=== PATIENT | female | born 1970 | race Caucasian/White ===

== ENCOUNTER 2017-09-08 03:54 | Emergency (ER) | payer OTHER ==
[~2017-09-08] VITALS: Ht 261.6 cm; Wt 62.6 kg
[2017-09-08 07:54] LABS: BASOPHIL % 0.6 % (0-2); PLATELET COUNT 247 x10^3mcL (130-400); RED CELL DISTRIBUTION WIDTH 14.4 % (11.5-14.5)
[2017-09-08 08:07] LABS: CALCIUM 8.9 mg/dL (8.5-10.1); CARBON DIOXIDE 30.1 mmol/L (21-32); CHLORIDE SERUM 105 mmol/L (98-107); CREATININE SERUM 0.7 mg/dL (0.6-1.0); GFR1 > 60 mL/min; GLUCOSE SERUM 89 mg/dL (74-106); POTASSIUM SERUM 3.3 mmol/L (3.5-5.1); SODIUM SERUM 141 mmol/L (136-145)
[2017-09-08 08:22] VITALS: BP 143/93
[2017-09-08 10:02] LABS: ERYTHROCYTE SED RATE 11 mm/hr (0-20)
== END 2017-09-08 10:15 | disposition home or self-care (01) ==
LOC: ED 03:54
PROVIDERS: Emergency Medicine
DX: M77.9 Enthesopathy, unspecified (principal); I10 Essential (primary) hypertension
CPT/HCPCS: 36415

== ENCOUNTER 2017-09-28 19:21 | Emergency (ER) | payer OTHER ==
[~2017-09-28] VITALS: Ht 170.2 cm; Wt 61.5 kg
[2017-09-28 19:32] VITALS: Ht 170.2 cm; Wt 61.5 kg
[2017-09-28 20:45] LABS: BASOPHIL % 0.5 % (0-2); PLATELET COUNT 327 x10^3mcL (130-400); RED CELL DISTRIBUTION WIDTH 13.9 % (11.5-14.5)
[2017-09-28 20:54] LABS: CALCIUM 9.9 mg/dL (8.5-10.1); CARBON DIOXIDE 27.7 mmol/L (21-32); CHLORIDE SERUM 97 mmol/L (98-107); CREATININE SERUM 0.6 mg/dL (0.6-1.0); GFR1 > 60 mL/min; GLUCOSE SERUM 107 mg/dL (74-106); POTASSIUM SERUM 4.3 mmol/L (3.5-5.1); SODIUM SERUM 136 mmol/L (136-145)
[2017-09-28 20:58] LABS: ALBUMIN 4.3 g/dL (3.4-5.0); ALKALINE PHOSPHATASE 108 U/L (46-116); ALT/SGPT 27 U/L (14-59); AST/SGOT 34 U/L (15-37); BILIRUBIN TOTAL 0.63 mg/dL (0.20-1.00)
[2017-09-29 00:07] VITALS: BP 151/95
== END 2017-09-29 00:07 | disposition home or self-care (01) ==
LOC: ED 19:21
PROVIDERS: Emergency Medicine
DX: R07.89 Other chest pain (principal); M54.6 Pain in thoracic spine; R06.02 Shortness of breath; R11.0 Nausea; J45.909 Unspecified asthma, uncomplicated; Z90.710 Acquired absence of both cervix and uterus
CPT/HCPCS: J1885; J7030; Q9967

== ENCOUNTER 2018-11-14 11:27 | Inpatient (IN) | payer OTHER ==
[~2018-11-14] VITALS: Ht 167.6 cm; Wt 62.8 kg
[2018-11-14 11:32] VITALS: Ht 167.6 cm; Wt 62.8 kg
--- NOTE | 2018-11-14 11:46 | NUR ---
PT BIBA FOR SEVERE UPPER BACK PAIN SINCE WEDNESDAY BUT REPORTS IT GOT WORSE TODAY AND PAIN CAUSED PT FALL ON FLOOR. NO INJURY OR LOC. PT STS PAIN STARTED ORIGINALLY IN LOWER BACK AND RADIATES BETWEEN SHOULDER BLADES. PT REPORTS EPISODE OF BACK PAIN LIKE THIS IN THE PAST AND IT WAS A TORN LIGAMENT IN HER BACK. PT IS AAOX4, RESPS E/U; SPEAKING IN CLEAR AND COMPLETE SENTENCES. CALL LIGHT WITH IN REACH. STS SHE IS UNABLE TO GIVE URINE AT THIS TIME DUE TO PAIN. DENIES ANY CHANCE OF DUE TO HYSTERECTOMY.
--- NOTE | 2018-11-14 11:54 | NUR ---
EKG IN PROGRESS
[2018-11-14 11:57] LABS: BASOPHIL % 0.1 % (0-2); PLATELET COUNT 207 x10^3mcL (130-400)
[2018-11-14 12:05] LABS: RED CELL DISTRIBUTION WIDTH 15.4 % (11.5-14.5)
[2018-11-14 12:42] LABS: CALCIUM 11.3 mg/dL (8.5-10.1); CARBON DIOXIDE 25.5 mmol/L (21-32); CHLORIDE SERUM 93 mmol/L (98-107); CREATININE SERUM 0.9 mg/dL (0.6-1.0); GFR1 > 60 mL/min; GLUCOSE SERUM 131 mg/dL (74-106); POTASSIUM SERUM 3.9 mmol/L (3.5-5.1); SODIUM SERUM 133 mmol/L (136-145)
[2018-11-14 12:48] LABS: ALBUMIN 4.6 g/dL (3.4-5.0); ALKALINE PHOSPHATASE 117 U/L (46-116); ALT/SGPT 31 U/L (14-59); AST/SGOT 49 U/L (15-37); BILIRUBIN TOTAL 0.95 mg/dL (0.20-1.00); TOTAL PROTEIN, SERUM 9.2 g/dL (6.4-8.2)
--- NOTE | 2018-11-14 13:16 | NUR ---
PT MEDICATED PER MD ORDER, PT VERBALIZED UNDERSTANDING OF MEDICATION PRIOR TO ADMINISTRATION. PRIOR TO ADMINISTRATION, ASKED PT FOR URINE SAMPLE TO CHECK FOR , PT REPORTED THAT SHE HAD A HYSTERECTOMY. PT GIVEN CALL LIGHT AND SHOWN HOW TO USE IT. AWARE OF NEED FOR URINE SAMPLE.
--- NOTE | 2018-11-14 13:48 | NUR ---
PT LAYING COMFORTABLY IN GURNEY, AWAKE AND ALERT, RESP E/U, REPORTS PAIN IMPROVED TO 4/10 AT THIS TIME. ENCOURAGED PT TO PROVIDE URINE SAMPLE, PT REPORTS SHE IS STILL UNABLE TO PROVIDE.
[2018-11-14] MEDS ORDERED: ZOLOFT50 MG PO (14:32)
[2018-11-14] MEDS ORDERED: XANAX0.5 MG PO (14:32)
[2018-11-14] MEDS ORDERED: PROVENTIL0.09 MG/A1 IH (14:32)
[2018-11-14] MEDS ORDERED: TRAZODONE100 MG PO (14:33)
[2018-11-14 14:45] LABS: microscopic required? YES; urine erythrocyte 2+ (NEGATIVE)
--- NOTE | 2018-11-14 14:49 | NUR ---
PT LAYING COMFORTABLY IN GURNEY, AWAKE AND ALERT, SPEAKING WITH RESIDENT MDS. VERBALIZED UNDERSTANDING OF PLAN OF CARE FOR ADMISSION.
--- NOTE | 2018-11-14 15:31 | NUR ---
REPORT CALLED TO OLEGARIO LOPES ON TELE TO ASSUME CARE FOR PT.
--- NOTE | 2018-11-14 15:41 | NUR ---
PER DR COLINDRES, HE WOULD LIKE PT TO RECIEVE FIRST DOSE OF MACROBID HERE IN ED NOW.
--- NOTE | 2018-11-14 15:52 | NUR ---
PT TRANSPORTED TO TELE AT THIS TIME BY RN DUSTY AND EMT JASON. PT IS AWAKE AND ALERT, RESP E/U, VERBALIZED UNDERSTANDING OF PLAN OF CARE PRIOR TO TRANSPORT. NAD NOTED UPON LEAVING ED.
[2018-11-14 16:11] VITALS: BP 138/101
--- NOTE | 2018-11-14 16:17 | NUR ---
RECIVED PT FROM ED VIA TIMOTHY. ORIENTED PT TO ROOM AND SURROUNDINGS. IV NOTED TO RW PATENT AND INTACT. TELE 29 PLACED ON PT READING ST WITH ELEVATED T WAVE. INSTRUCTED PT ON THE USE OF CALL LIGHT FOR ASSISTANCE. ENDORSED PT TO PRIMARY NURSE MOSES
[2018-11-14 16:23] LABS: AMPHETAMINE QUAL UR NONE DETECTED (See below)
[2018-11-14 16:23] LABS: MAGNESIUM 2.3 mg/dL (1.8-2.4); PHOSPHOROUS 1.3 mg/dL (2.5-4.9)
[2018-11-14 16:24] LABS: CHOLESTEROL/HDL RATIO 2.1
--- NOTE | 2018-11-14 17:49 | NUR ---
PT EATING DINNER, C/O DIFFICULTY PASSING FOOD FURTHER INTO THE ESOPHAGUS; PT WAS POINTING AT THE LEFT SIDE OF HER CHEST, XYPHOID PROCESS LEVEL. STATES THAT SHE FEELS SHARP PAIN 10/10 WHEN SHE SWALLOWS SOLID FOOD AND EVEN LIQUIDS. PAGED DR JAIMES.
--- NOTE | 2018-11-14 18:20 | NUR ---
DR JAIMES PAGED X 2, NO RESPONSE. PT GIVEN NORCO 7.5/325MG 1 TAB PO FOR SHARP ESOPHAGEAL PAIN S/P SWALLOWING FOOD, STATES 10/10 PAIN. NO RESPIRATORY DISTRESS NOTED. FAMILY MEMBERS BY BEDSIDE. SIDE RAILS UP X 2, BED IN LOW POSITION, CALL LIGHT WITHIN REACH. WILL ENDORSE TO NOC SHIFT.
--- NOTE | 2018-11-14 19:15 | NUR ---
CARE ASSUMED FROM OUTGOING RN. PT RESTING IN BED. PT C/O OF LEFT SHOULDER PAIN AND PAIN LEFT TO PT XYPHOID PROCESS WHEN SWALLOWING ANYTHING. BACK PAIN IS MUCH BETTER AFTER PAIN MEDICATIONS GIVEN DURING DAY SHIFT. NO C/O SOB AT THIS TIME ON RA. ON TELE # [address] 103 WITH SLIGHTLY ELEVATED T WAVE. IVL PATENT AND INTACT. BED IN LOWEST POSITION. SEIZURE PRECAUTION IN PLACE. CALL LIGHT WITHIN REACH. WILL CONTINUE TO MONITOR.
[2018-11-14 21:10] VITALS: BP 138/100
--- NOTE | 2018-11-15 | NUR ---
PT ASLEEP COMFORTABLY. NO ACUTE DISTRESS NOTED. EVEN AND UNLABORED RESPIRATIONS ON RA. IVL PATENT AND INTACT. ON TELE #[address] 104. BED IN LOWEST POSITION. SEIZURE PRECAUTION IN PLACE. SIDE RAILS UPX2. CALL LIGHT WITHIN REACH. WILL CONTINUE TO MONITOR.
--- NOTE | 2018-11-15 01:46 | NUR ---
PT RESTING IN BED. C/O LOWER BACK PAIN 10/17. MEDICATED PER EMAR. KPAD APPLIED. ON TELE #[address] 137. IVL INTACT. BED IN LOWEST POSITION. SEIZURE PRECAUTION IN PLACE. SIDE RAILS UPX2. CALL LIGHT WITHIN REACH. WILL CONTINUE TO MONITOR AND REASSESS FOR PAIN.
[2018-11-15 04:58] VITALS: BP 155/110
[2018-11-15 06:34] LABS: BASOPHIL % 0.2 % (0-2); PLATELET COUNT 207 x10^3mcL (130-400)
[2018-11-15 06:48] LABS: RED CELL DISTRIBUTION WIDTH 14.9 % (11.5-14.5)
[2018-11-15 06:57] LABS: CALCIUM 10.4 mg/dL (8.5-10.1); CHLORIDE SERUM 95 mmol/L (98-107); CREATININE SERUM 0.7 mg/dL (0.6-1.0); GFR1 > 60 mL/min; GLUCOSE SERUM 119 mg/dL (74-106); MAGNESIUM 2.1 mg/dL (1.8-2.4); PHOSPHOROUS 2.2 mg/dL (2.5-4.9); SODIUM SERUM 133 mmol/L (136-145)
--- NOTE | 2018-11-15 07:20 | NUR ---
RECEIVED PATIENT FROM CARDIAC NURSE PRACTITIONER NURSE. PATIENT IS RESTING WITH BOTH EYES CLOSED, AROUSABLE. TELE#29, ST WITH PEAKED T WAVE, HR 100. ON ROOM AIR, BREATHING EVEN AND UNLABORED. IV NOTED TO RIGHT WRIST, SALINE LOCKED, FLUSHING WELL, NO S/S ERYTHEMA AT SITE. CALL LIGHT WITHIN EASY REACH. WILL CONTIUE PLAN OF CARE.
--- NOTE | 2018-11-15 07:24 | NUR ---
PT SLEPT IN INTERVALS THROUGHOUT THE NIGHT. NO ACUTE CHANGES NOTED. C/O LOWER BACK PAIN AND CHEST PAIN MEDICATED PER EMAR. K PAD APPLIED. ALL NEEDS TENDED TO AND MET. ALL MEDICATIONS GIVEN. IVL INTACT. ON TELE #29 READING SR-ST. BED IN LOWEST POSITION. SEIZURE PRECAUTION IN PLACE. SIDE RAILS UPX2. CALL LIGHT WITHIN REACH. ENDORSED PT TO ONCOMING SHIFT.
[2018-11-15 09:58] VITALS: BP 153/103
--- NOTE | 2018-11-15 12:57 | NUR ---
DISCUSSED PLAN OF CARE FOR GI CONSULT WITH PATIENT. PATIENT VERBALIZES UNDERSTANDING. INSTRUCTED PATIENT TO KEEP HOB ELEVATED TO ALLEVIATE POSSIBLE GERD LIKE SYMPTOMS.
[2018-11-15 13:41] VITALS: BP 115/85
[2018-11-15] MEDS ORDERED: NATURAL IRON65 MG PO (14:33)
--- NOTE | 2018-11-15 16:57 | NUR ---
PATIENT MEDICATED FOR 10/10 PAIN TO LOWER BACK WITH NORCO PER REQUEST. SEE EMAR.
[2018-11-15 17:48] VITALS: BP 100/73
--- NOTE | 2018-11-15 18:54 | NUR ---
PATIENT RESTING EASY. DENIES PAIN AND DISCOMFORT. RESP REMAIN E/U ON ROOM AIR. PATIENT CARE TO BE ENDORSED TO DIRECTOR FUNDS DEVELOPMENT NURSE.
--- NOTE | 2018-11-15 19:59 | NUR ---
PT CURRENTLY RESTING IN BED, NO ACUTE DISTRESS. A/O X4. NO TELE, MED/SURG. DENIES CHEST PAIN. PULSES PALPABLE IN ALL EXTREMITIES, NO EDEMA NOTED. LUNG SOUNDS CTA BILATERALLY, DENIES SOB. BOWEL SOUNDS ACTIVE, LAST BM 11/14/18. PT STATES THROAT PAIN /10 WHILE TRYING TO SWALLOW. VOIDING WELL. AMBULATORY. SKIN INTACT. IV PATENT AND INTACT. BED IN LOWEST POSITION, SIDE RAILS UP X2, CALL LIGHT WITHIN REACH. WILL CONTINUE TO MONITOR.
[2018-11-15 20:50] VITALS: BP 100/73
[2018-11-15 21:44] VITALS: BP 115/80
--- NOTE | 2018-11-15 23:55 | NUR ---
PT CURRENTLY RESTING IN BED, NO ACUTE DISTRESS. WILL CONTINUE TO MONITOR.
[2018-11-16 05:59] VITALS: BP 93/60
--- NOTE | 2018-11-16 06:05 | NUR ---
PT SLEPT PERIODICALLY THROUGHOUT NIGHT, NO ACUTE DISTRESS. ALL NEEDS MET AND ATTENDED TO. NO SIGNIFICANT CHANGES. IV PATENT AND INTACT. MEDICATED PAIN PER EMAR. BED IN LOWEST POSITION, SIDE RAILS UP X2, CALL LIGHT WITHIN REACH. WILL ENDORSE CARE TO ONCOMING NURSE.
--- NOTE | 2018-11-16 07:12 | NUR ---
RECEIVED PT FROM SHIFT NURSE ASLEEP BUT AROUSABLE. NO ACUTE DISTRESS NOTED. HEPLOCK PATENT. BED IN LOW POSITION. CALL LIGHT WITHIN REACH. WILL CONTINUE TO MONITOR.
[2018-11-16 08:39] VITALS: BP 101/68
--- NOTE | 2018-11-16 09:47 | NUR ---
PT LEFT FOR PROCEDURE.
--- NOTE | 2018-11-16 11:00 | NUR ---
PT BACK FROM PROCEDURE. TEMP 98.2 BP 108/79 HR 95 RR 16. RESP EVEN AND UNLABORED ON SAT 100% NO ACUTE DISTRESS NOTED. IV INTACT AND PATENT. CALL LIGHT WITHIN REACH. WILL CONTINUE TO MONITOR.
--- NOTE | 2018-11-16 13:00 | NUR ---
PAGED DR. JAIMES REGARDING URINE CULTURE POSITIVE FOR KLEBSIELLA PNEUMONIAE. AWAITING FURTHER ORDERDS.
--- NOTE | 2018-11-16 14:04 | NUR ---
PT ASLEEP IN BED BUT AROUSABLE. NO ACUTE DISTRESS NOTED. CALL LIGHT WITHIN REACH. WILL CONTINUE TO MONITOR.
--- NOTE | 2018-11-16 16:12 | NUR ---
IV TO RW WAS INFILTRATED. IV REMOVED AND CATH INTACT. APPLIED WARM COMPRESS. WILL CONTINUE TO MONITOR.
--- NOTE | 2018-11-16 16:13 | NUR ---
INSERTED NEW IV TO LAC 22G. IV INTACT AND PATENT. WILL CONTINUE TO MONITIOR.
[2018-11-16 16:58] VITALS: BP 104/71
--- NOTE | 2018-11-16 18:20 | NUR ---
PT SITTING UP WATCHING TV. SEIZURE PRECAUTIONS IN PLACE. NO ACUTE DISTRESS NOTED. IV INTACT AND PATENT. BED IN LOW POSITION. CALL LIGHT WITHIN REACH. WILL BE ENDORSED.
--- NOTE | 2018-11-16 19:25 | NUR ---
RECIEVED PATIETN AT START OF SHIFT A/O X4. SEIZURE PRECAUTIONS IN PLACE. NO SOB ON RA. REPORTS SOME MILD PAIN AND NAUSEA WHEN SHE TRIES TO DRINK HER ENSURE. NO REDNESS OR BLEEDING NOTED IN BACK OF THROAT. SCDS ON. IV TO LAC INFUSING WITHOUT ERYTHEMA OR INFILTRATION. BED LOCKED AND IN LOWEST POSIITON. CALL LIGHT WITHIN REACH.
[2018-11-16 20:48] VITALS: BP 114/82
--- NOTE | 2018-11-16 20:54 | NUR ---
ZOFRAN GIVEN PER EMAR FOR REPORT OF NAUSEA.
--- NOTE | 2018-11-16 23:40 | NUR ---
PATIENT GIVEN ATIVAN PER EMAR FOR RESTLESSNESS AND TROUBLE SLEEPING.
[2018-11-17 06:30] VITALS: BP 116/87
--- NOTE | 2018-11-17 06:38 | NUR ---
NO FURTHER SIGNIFICANT EVENTS THIS SHIFT. PATIENTS EYES ARE CLOSED. BREATHS EVEN. IV INFUSING WITHOUT ERYTHEMA OR INFILTRATION. CALL LIGHT AND BEDSDIE TABLE WITHIN REACH. SAFETY AND COMFORT MAINTAINED THROUGH OUT SHIFT. WILL ENDORSE CARE TO MORNING NURSE.
--- NOTE | 2018-11-17 07:06 | NUR ---
RECEIVED PT FROM SHIFT NURSE ASLEEP BUT AROUSABLE. NO ACUTE DISTRESS NOTED. SEIZURE PRECAUTIONS IN PLACE. IV INTACT AND PATENT. BED IN LOW POSITION. CALL LIGHT WITHIN REACH. WILL CONTINUE TO MONITOR.
[2018-11-17 08:29] VITALS: BP 100/73
--- NOTE | 2018-11-17 09:54 | NUR ---
PT SITTING UP IN BED WATCHING TV. DENIES ANY BACK PAIN AT THIS TIME. CALL LIGHT WITHIN REACH. WILL CONTINUE TO MONITOR.
[2018-11-17] MEDS ORDERED: ZES5 PO (12:05)
[2018-11-17] MEDS ORDERED: NITROFURANTOIN100 MG PO (12:08)
[2018-11-17] MEDS ORDERED: FLUCONAZOLE200 M2 PO (12:08)
--- NOTE | 2018-11-17 12:32 | NUR ---
PT ASLEEP BUT AROUSABLE. CALL LIGHT WITHIN REACH. WILL CONTINUE TO MONITOR.
[2018-11-17 12:56] VITALS: BP 105/71
--- NOTE | 2018-11-17 13:16 | NUR ---
GIVE ALL THE INSTRUCTION TO THE PT. ALL DISCHARGE DOCUMENT HAS BEEN SIGNED. PT IS GETTING READY AND WAITING FOR FAMILY TO COME TO PICK HER UP. WILL CONTINUE TO MONITOR THE PT.
--- NOTE | 2018-11-17 13:26 | NUR ---
PT'S FAMILY IS HERE TO METAL SASH SETTER THE PT. REMOVED IV, AND WHEEL PT DOWN WITH WHEEL CHAIR.
== END 2018-11-17 13:30 | disposition home or self-care (01) | DRG 242 ==
LOC: ED 11:27 → MU 14:51 → DU 14:51 → MU 11-15 20:00
PROVIDERS: Emergency Medicine; Internal Medicine Gastroenterology; ADMIT Internal Medicine
PROC: 0DB58ZX Excision of Esophagus, Via Natural or Artificial Opening Endoscopic, Diagnostic (ICD-10-PCS; principal; 2018-11-16 10:30)
DX: B37.81 Candidal esophagitis (principal); E83.39 Other disorders of phosphorus metabolism; S33.5XXA Sprain of ligaments of lumbar spine, initial encounter; M94.0 Chondrocostal junction syndrome [Tietze]; N39.0 Urinary tract infection, site not specified; E83.52 Hypercalcemia; F41.9 Anxiety disorder, unspecified; G47.00 Insomnia, unspecified; X58.XXXA Exposure to other specified factors, initial encounter; B96.1 Klebsiella pneumoniae [K. pneumoniae] as the cause of diseases classified elsewhere; I10 Essential (primary) hypertension; E78.5 Hyperlipidemia, unspecified; Z68.21 Body mass index [BMI] 21.0-21.9, adult; Z90.711 Acquired absence of uterus with remaining cervical stump; Z80.9 Family history of malignant neoplasm, unspecified; Z72.89 Other problems related to lifestyle; Y93.89 Activity, other specified; Y92.89 Other specified places as the place of occurrence of the external cause; Y99.8 Other external cause status; Z79.899 Other long term (current) drug therapy
CPT/HCPCS: 43235; 83880; 88344; G0378; J1200; J1450; J1610; J1885; J2250; J2270; J2310; J2405; J3010; J3490; J7030; J7620